=== PATIENT | female | born 1955 | race Caucasian/White ===

== ENCOUNTER 2024-05-29 11:06 | Outpatient (CLI) | payer BC, MEDICARE | END 2024-05-29 11:07 | disposition home or self-care (01) | LOC: NAV RAD 11:06 | PROVIDERS: ATTEND Family Medicine | DX: R04.2 Hemoptysis (principal) | CPT/HCPCS: 71046 ==

== ENCOUNTER 2024-08-21 14:56 | Outpatient (CLI) | payer MEDICARE, OTHER | END 2024-08-21 14:57 | disposition home or self-care (01) | LOC: NAV RAD 14:56 | PROVIDERS: ATTEND Student in an Organized Health Care Education/Training Program | DX: S80.01XA Contusion of right knee, initial encounter (principal) ==